=== PATIENT | male | born 1970 | race Caucasian/White ===

== ENCOUNTER → 2018-04-02 | Outpatient (CLI) | payer OTHER | END | disposition home or self-care (01) | LOC: LAB EV 16:55 → LAB SHORT 16:55 | DX: E11.9 Type 2 diabetes mellitus without complications (principal) | CPT/HCPCS: 82043 ==

== ENCOUNTER → 2021-06-01 | Outpatient (CLI) | payer OTHER ==
[~2021-06-01] MED LIST: AMLO10; Flagyl500 MG PO; LEVFLO500 PO; Norco 5-325 Ta1 EACH PO
== END | disposition home or self-care (01) ==
LOC: LAB 14:28 → LAB SHORT 14:28
DX: M10.9 Gout, unspecified (principal)
CPT/HCPCS: 84550

== ENCOUNTER 2025-01-22 10:11 | Observation (INO) | payer OTHER ==
[~2025-01-22] VITALS: Ht 182.9 cm; Wt 112.4 kg
--- NOTE | 2025-01-22 10:20 | NUR ---
PT DIRECT ADMIT PER DR. GARDNER, ARRIVED TO HOSPITAL VIA PRIVATE VEHICLE, ARRIVES WITH PATIENT. ADMIT TO ICU 14. ALERT AND ORIENTED X 4, AMBULATES INDEPENDENTLY. ABLE TO FOLLOW COMMANDS AND MAKE PURPOSEFUL MOVEMENTS. CONTINOUS CARDIAC MONITORING PLACED, SHOWS SR. BP STABLE c MAP > 65. ON RA WITH O2 SATURATION > 92%. NO ACUTE NEEDS IDENTIFIED AT THIS TIME. SEE SHIFT ASSESSMENT FOR FULL DETAILS.
[2025-01-22] MEDS ORDERED: IRBE75 PO (10:29)
[2025-01-22 10:45] VITALS: BP 146/89
[2025-01-22] MEDS ORDERED: Ondansetron 4 MG TAB PO PRN (11:20)
[2025-01-22] MEDS ORDERED: FLU VACC TS2024-25(6MOS UP)/PF 45 MCG/0.5 ML SYRINGE IM PRN (11:20)
[2025-01-22 12:00] VITALS: BP 150/83
[2025-01-22 12:12] LABS: BASOPHILS ABSOLUTE AUTO 0.01 K/mm3 (0.00-0.23); BASOPHILS PERCENT AUTO 0 % (0-2); EOSINOPHILS ABSOLUTE AUTO 0.03 K/mm3 (0.00-0.68); EOSINOPHILS PERCENT AUTO 1 % (0-6); Hematocrit 33.5 % (37.0-53.0); Hemoglobin 11.8 g/dL (13.5-17.5); IMMATURE GRAN ABSOLUTE AUTO 0.01 K/mm3 (0.00-0.10); IMMATURE GRAN PERCENT AUTO 0 % (0-1); LYMPHOCYTES ABSOLUTE AUTO 1.45 K/mm3 (0.84-5.20); LYMPHOCYTES PERCENT AUTO 52 % (21-46); MONOCYTES ABSOLUTE AUTO 0.34 K/mm3 (0.16-1.47); MONOCYTES PERCENT AUTO 12 % (4-13); Mean Corpuscular HGB 34.1 pg (26.0-34.0); Mean Corpuscular HGB Conc 35.2 g/dL (31.5-36.5); Mean Corpuscular Volume 97 fL (80-100); Mean Platelet Volume 11.3 fL (9.1-12.4); NEUTROPHILS ABSOLUTE AUTO 0.93 K/mm3 (1.96-9.15); NEUTROPHILS PERCENT AUTO 34 % (41-73); Platelet Count 269 K/mm3 (150-400); RDW Coefficient Variation 13.6 % (11.7-14.2); RDW Standard Deviation 48.6 fL (35.1-46.3); Red Blood Cell Count 3.46 M/mm3 (4.30-5.90); White Blood Cell Count 2.77 K/mm3 (4.00-11.30)
[2025-01-22 12:57] LABS: Bilirubin, Total 0.6 mg/dL (0.1-1.0); Bun/Creatinine Ratio 19.5 (12.0-20.0); Calcium, Blood 9.4 mg/dL (8.5-10.1); Creatinine, Blood 0.82 mg/dL (0.60-1.20); Globulin, Blood 3.9 g/dL (2.2-4.0); Potassium, Blood 4.1 mmol/L (3.5-5.5); Thyroid Stimulating Hormone 2.51 uIU/mL (0.360-4.800); Total Protein, Blood 7.9 g/dL (6.4-8.2)
[2025-01-22] MEDS ORDERED: Losartan Potassium 50 MG Tab PO SCH (14:00)
[2025-01-22 16:19] VITALS: BP 132/96
--- NOTE | 2025-01-22 17:02 | NUR ---
SHIFT SUMMARY PT REMAINED ALERT AND ORIENTED X 4 T/O ENTIRETY OF SHIFT. ABLE TO FOLLOW COMMANDS, MAKE PURPOSEFUL MOVEMENTS, AND MAKE NEEDS KNOWN. AFEBRILE. CONTINOUS CARDIAC MONITORING SHOWS SR WITH HR IN 70'S-80'S, BP STABLE c MAP > 65. REPORTS 1/10 MID-STERNAL CP WITH RADIATION TO L ARM. REPORTS PAIN HAS NOT WORSENED SINCE HIS ARRIVAL, AND IS BETTER WITH REST. ON RA WITH O2 SATURATION > 92%. DENIES SOB. NO BM THIS SHIFT. DENIES N/V. TOLERATING PO MEDS AND INTAKE WELL. AMBULATES TO BEDSIDE TOILET WITH LINE/CORD GUIDANCE. PIV TO L HAND SALINE LOCKED. PART ONE OF STRESS TEST AND BEDSIDE ECHO COMPLETED THIS SHIFT, PART 2 OF STRESS TEST 01/23/25. AT BEDSIDE EARLIER THIS SHIFT, UPDATED ON PLAN OF CARE. WILL CONTINUE TO MONITOR AND REPORT TO ONCOMING RN.
[2025-01-22 19:55] VITALS: BP 154/83
[2025-01-23 00:41] VITALS: BP 134/74
[2025-01-23 03:34] VITALS: BP 123/86
[2025-01-23 03:58] LABS: BASOPHILS ABSOLUTE AUTO 0.01 K/mm3 (0.00-0.23); BASOPHILS PERCENT AUTO 0 % (0-2); EOSINOPHILS ABSOLUTE AUTO 0.07 K/mm3 (0.00-0.68); EOSINOPHILS PERCENT AUTO 2 % (0-6); Hematocrit 33.4 % (37.0-53.0); Hemoglobin 11.7 g/dL (13.5-17.5); IMMATURE GRAN ABSOLUTE AUTO 0.01 K/mm3 (0.00-0.10); IMMATURE GRAN PERCENT AUTO 0 % (0-1); LYMPHOCYTES ABSOLUTE AUTO 2.02 K/mm3 (0.84-5.20); LYMPHOCYTES PERCENT AUTO 67 % (21-46); MONOCYTES PERCENT AUTO 10 % (4-13); Mean Corpuscular HGB 33.9 pg (26.0-34.0); Mean Corpuscular Volume 97 fL (80-100); Mean Platelet Volume 11.7 fL (9.1-12.4); NEUTROPHILS PERCENT AUTO 20 % (41-73); Platelet Count 259 K/mm3 (150-400); RDW Coefficient Variation 13.8 % (11.7-14.2); RDW Standard Deviation 49.1 fL (35.1-46.3); Red Blood Cell Count 3.45 M/mm3 (4.30-5.90); White Blood Cell Count 3.01 K/mm3 (4.00-11.30)
[2025-01-23 04:23] LABS: Alanine Aminotransfer (ALT/SGP 74 U/L (12-78); Albumin, Blood 3.8 g/dL (3.4-5.0); Albumin/Globulin Ratio 1.1 (0.8-1.8); Alk Phos 64 U/L (50-136); Anion Gap 10 mmol/L (3-11); Aspartate Aminotrans (AST/SGOT 28 U/L (12-37); BAND PERCENT MAN 2 % (0-8); BASOPHILS PERCENT MAN 0 % (0-2); Bilirubin, Total 0.4 mg/dL (0.1-1.0); Blood Urea Nitrogen 14 mg/dL (8-24); Bun/Creatinine Ratio 19.3 (12.0-20.0); CHOL/HDL RATIO 3.3; CO2, Blood 23 mmol/L (21-32); Calcium, Blood 8.8 mg/dL (8.5-10.1); Chloride, Blood 111 mmol/L (98-108); Cholesterol 162 mg/dL (50-200); Creatinine, Blood 0.73 mg/dL (0.60-1.20); EOSINOPHILS ABSOLUTE MAN 0.03 K/mm3 (0.00-0.68); EOSINOPHILS PERCENT MAN 1 % (0-6); Globulin, Blood 3.6 g/dL (2.2-4.0); Glomerular Filtration Rate 109 (60-); Glucose, Blood 125 mg/dL (70-99); HDL Cholesterol 49 mg/dL (>39); LDL/HDL RATIO 1.8; LYMPHOCYTES % ATYPICAL MANUAL 1 % (0-0); LYMPHOCYTES ABSOLUTE MAN 2.16 K/mm3 (0.84-5.20); LYMPHOCYTES PERCENT MAN 71 % (21-46); Low Density Lipoprotein Chol 88 mg/dL (0-110); MONOCYTES ABSOLUTE MAN 0.12 K/mm3 (0.16-1.47); MONOCYTES PERCENT MAN 4 % (4-13); Magnesium, Blood 2.2 mg/dL (1.6-2.4); NEUTROPHILS ABSOLUTE MAN 0.69 K/mm3 (1.96-9.15); Potassium, Blood 4.4 mmol/L (3.5-5.5); SEG NEUTROPHILS PERCENT MAN 21 % (41-73); Sodium, Blood 140 mmol/L (136-145); TOTAL CELLS COUNTED 100; Total Protein, Blood 7.4 g/dL (6.4-8.2); Triglycerides 127 mg/dL (30-160); Very Low Density Lipoprot Chol 25 mg/dL (6-32)
--- NOTE | 2025-01-23 05:57 | NUR ---
NOC SHIFT SUMMARY NO ACUTE EVENTS OVERNIGHT. PT ALERT, ORIENTED AND COOPERATIVE W/ CARE. PT UP TO USE RESTROOM INDEPENDENTLY. PT KEPT NPO AFTER MIDNIGHT FOR STRESS TEST TODAY. PT ON RA W/ SATS>95%. BP STABLE. 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 AFEBRILE. IV PATENT AND SALINE LOCKED. NO SKIN ISSUES OBSERVED. CALL LIGHT W/ IN REACH AND USING APPROPRIATELY. PLAN OF CARE ONGOING.
[2025-01-23 08:00] VITALS: BP 132/82
[2025-01-23] MEDS ORDERED: Regadenoson 0.4 MG/5 ML SYRINGE ONE (08:28)
[2025-01-23] MEDS ORDERED: Metoprolol Succinate 25 MG TABCR PO SCH (09:00)
[2025-01-23] MEDS ORDERED: Aspirin 81 MG Chew PO SCH (09:00)
[2025-01-23] MEDS ORDERED: Atorvastatin 40 MG Tab PO SCH (09:00)
[2025-01-23] MEDS ORDERED: Enoxaparin 40 MG/0.4 ML SYR SC SCH (09:00)
[2025-01-23] MEDS ORDERED: AmLODIPine Besylate 5 MG Tab PO SCH (09:00)
== END 2025-01-23 18:30 | disposition home or self-care (01) ==
LOC: ICUE 10:11
PROVIDERS: ADMIT Internal Medicine
DX: R07.89 Other chest pain (principal); I35.1 Nonrheumatic aortic (valve) insufficiency; R68.82 Decreased libido; I10 Essential (primary) hypertension; E11.9 Type 2 diabetes mellitus without complications; K76.0 Fatty (change of) liver, not elsewhere classified; G47.33 Obstructive sleep apnea (adult) (pediatric); E78.5 Hyperlipidemia, unspecified; E66.9 Obesity, unspecified; Z68.33 Body mass index [BMI] 33.0-33.9, adult
CPT/HCPCS: 36415; 71260; 78452; 80053; 80061; 83735; 83880; 84145; 84443; 84484; 85025; 93017; 93306; 96372; A9270; A9500; G0378; J1650; J2785; Q9967